=== PATIENT | male | born 1945 | race Hispanic/Latino ===

== ENCOUNTER 2019-08-23 23:58 | Observation (INO) | payer MEDICARE ==
[~2019-08-23] VITALS: Ht 157.5 cm; Wt 52.4 kg
[2019-08-24 00:26] LABS: BASOPHILS % (AUTO) 0.6 % (0.0-5.0); EOSINOPHILS % (AUTO) 1.7 % (0.0-8.0); HEMATOCRIT 27.7 % (42-54); LYMPHOCYTES % (AUTO) 14.8 % (21.0-51.0); MEAN CORPUSCULAR HEMOGLOBIN 26.8 pg (27.0-33.0); MEAN CORPUSCULAR HGB CONC 33.5 g/dL (32.0-36.0); MEAN CORPUSCULAR VOLUME 79.9 fL (79-99); MONOCYTES % (AUTO) 8.4 % (3.0-13.0); NEUTROPHILS % (AUTO) 74.5 % (40.0-77.0); PLATELET COUNT (AUTO) 222 K/uL (130-400); RED BLOOD CELL COUNT(AUTO) 3.47 MIL/uL (4.50-6.20); RED CELL DISTRIBUTION WIDTH 16.8 % (11.0-15.5); WHITE BLOOD COUNT (AUTO) 7.6 K/uL (4.8-10.8)
[2019-08-24 00:39] LABS: ALBUMIN 2.1 g/dL (3.5-5.0); BILIRUBIN,TOTAL 0.8 mg/dL (0.2-1.0); CREATININE 1.1 mg/dL (0.5-1.5); INR 1.13 (0.85-1.15); PARTIAL THROMBOPLASTIN TIME 26.8 SEC (26.3-35.5); PROTHROMBIN TIME 11.8 SEC (9.6-11.6); TOTAL PROTEIN, SERUM 3.8 g/dL (6.0-8.3)
[2019-08-24 00:45] LABS: POTASSIUM 2.1 mmol/L (3.5-5.1)
[2019-08-24] MEDS ORDERED: POTASSIUM CHLORIDE 20 MEQ ERTAB PO ONE (00:49)
[2019-08-24 01:07] LABS: ABG OXYGEN SATURATION 68.8 % (95.0-99.0); BASE EXCESS,VENOUS BLOOD GAS -4.1 (-2.0-3.0); HCO3,VENOUS BLOOD GAS 20.7 (21.0-28.0); PCO2,VENOUS BLOOD GAS 37 (35-48); PH,VENOUS BLOOD GAS 7.364 (7.350-7.450)
[2019-08-24 01:13] LABS: APPEARANCE,URINE Clear (CLEAR); BILIRUBIN,URINE Negative (NEGATIVE); COLOR,URINE Yellow (YELLOW); GLUCOSE, URINE (UA) Negative (NEGATIVE); KETONES,URINE Negative (NEGATIVE); LEUKOCYTE ESTERASE ,URINE Negative (NEGATIVE); NITRATE,URINE Negative (NEGATIVE); OCCULT BLOOD,URINE Negative (NEGATIVE); PH,URINE 5.5 (5.0-8.0); PROTEIN,URINE POS 1+ mg/dL (NEGATIVE)
[2019-08-24] MEDS ORDERED: ACETAMINOPHEN 325 MG TAB PO PRN (01:30)
[2019-08-24] MEDS ORDERED: POTASSIUM CHLORIDE 10MEQ/100ML 100 ML IV PRN (01:30)
[2019-08-24] MEDS ORDERED: LACTULOSE 20 GM/30 ML UDCUP PO PRN (01:30)
[2019-08-24] MEDS ORDERED: ONDANSETRON HCL 4 MG/2 ML VIAL IV PRN (01:30)
[2019-08-24] MEDS ORDERED: LIDOCAINE HCL-MPF 1% 2ML VIAL IV PRN (01:30)
[2019-08-24] MEDS ORDERED: POTASSIUM CHLORIDE 20 MEQ ERTAB PO PRN (01:30)
[2019-08-24] MEDS ORDERED: IPRATROPIUM/ALBUTEROL SULFATE 3 ML SOLUTION IH PRN (01:30)
[2019-08-24] MEDS ORDERED: POTASSIUM CHLORIDE 10% ELIXIR 20 MEQ/15 ML UDCUP PO PRN (01:30)
[2019-08-24] MEDS ORDERED: NITROGLYCERIN 0.4 MG SL TAB SL PRN (01:30)
[2019-08-24 01:33] LABS: AMPHET/METH SCREEN,URINE NEGATIVE (NEGATIVE); BARBITURATE SCREEN, URINE NEGATIVE (NEGATIVE); BENZODIAZEPINES SCREEN,URINE NEGATIVE (NEGATIVE); CANNABINOID SCREEN,URINE NEGATIVE (NEGATIVE); COCAINE SCREEN,URINE POSITIVE (NEGATIVE); OPIATE SCREEN,URINE NEGATIVE (NEGATIVE); PHENCYCLIDINE SCREEN,URINE NEGATIVE (NEGATIVE)
[2019-08-24 01:45] LABS: HEMOGLOBIN A1C 5.3 % (4.0-6.0)
[2019-08-24 01:47] LABS: CHOLESTEROL 101 mg/dL (<200); HDL CHOLESTEROL 89 mg/dL (29-71); LDL DIRECT 61 mg/dL (0-99); TRIGLYCERIDES 63 mg/dL (30-200)
[2019-08-24 02:53] VITALS: BP 152/83
--- NOTE | 2019-08-24 03:00 | NUR ---
ADMISSION PT RECEIVED TO 227. SEE NURSING DATA BASE AND ASSESSMENT FOR MORE INFORMATION. PT ORIENTED TO ROOM, CALLBELL WITHIN REACH.
[2019-08-24] MEDS: ACETAMINOPHEN 325 MG TAB PO PRN ×2 (03:38→04:35)
[2019-08-24 06:20] LABS: TROPONIN I 0.09 ng/mL (0.00-0.06)
[2019-08-24 08:10] VITALS: BP 144/88
--- NOTE | 2019-08-24 08:20 | NUR ---
MD VISIT DR MUHAMMAD IN TO SEE PT. UPDATED PT ON CURRENT STATUS & PLAN OF CARE. PT MENTIONS TO MD WANTING TO GO HOME. MD MENTIONS POSSIBILITY OF DYING IF CHEST PAIN NOT ADDRESSED ACCORDINGLY. PT RESPONDS BY SAYING NOT CARING IF HE GOES HOME AND DIES. PT REMINDED OF CARDIOLOGY CONSULT PENDING, & IF CLEARED BY CARDIOLOGY MAY GO HOME TODAY.
--- NOTE | 2019-08-24 08:45 | NUR ---
AM ASSESSMENT PT LAYING IN BED, SLEEPING. PT NOT WANTING TO BE BOTHERED, BU T ALLOWS ASSESSMENT. A/O X 3. NO SOB. NO DISTRESS NOTED. O2 NC @ 2L. DENIES CHEST PAIN OR DISCOMFORT. DENIES PALPITATIONS. TELE: SR 70s. DENIES N/V AND/OR DIARRHEA. BR W/BRP. PT INFORMED CARDIOLOGY CONSULT PENDING. INSTRUCTED TO CALL FOR ASSISTANCE. CALL LIZ W/IN REACH.
[2019-08-24] MEDS ORDERED: FAMOTIDINE 20MG TAB 20 MG TAB PO SCH (09:00)
[2019-08-24] MEDS ORDERED: ENOXAPARIN SODIUM 30 MG/0.3 ML SQ SCH (09:00)
[2019-08-24] MEDS ORDERED: METOPROLOL TARTRATE 25 MG TAB PO SCH (09:00)
[2019-08-24] MEDS ORDERED: ASPIRIN 325 MG TABLET PO SCH (09:00)
--- NOTE | 2019-08-24 10:25 | NUR ---
STATUS PT WANTING TO GO HOME. PT REMINDED MD HAS NOT GIVEN ORDER TO DISCHARGE HOME & PENDING TO BE SEEN BY CARDIOLOGY. PT INSISTS WANTING TO GO HOME TODAY, RIGHT NOW. LEAVING HOSPITAL AMA EXPLAINED TO PT. RISK OF ALSO MENTIONED @ THIS TIME. PT AGAIN STATES WANTING TO GO HOME & NOT CARING IF HE DIES. TELE KATHRINE REMOVED @ THIS TIME.
--- NOTE | 2019-08-24 10:28 | NUR ---
DISCHARGE AMA FOR BROUGHT IN & EXPLAINED TO PT. RISKS OF LEAVING AMA, INCLUDING , MENTIONED AGAIN. PT SIGNS FORM TO LEAVE HOSPITAL AMA.
--- NOTE | 2019-08-24 10:30 | NUR ---
DISCHARGE DR MUHAMMAD NOTIFIED PT DECIDED TO LEAVE AMA BEFORE BEING SEEN BY CARDIOLOGY.
--- NOTE | 2019-08-24 10:37 | NUR ---
DISCHARGE PT WALKED SELF OUT OF ROOM, LEAVING AMA. PRIOR TO LEAVING, PT PLACED PHONE CALL TO HAVE PERSON BOAT MOTOR MECHANIC FROM HOSPITAL.
[2019-08-24] MEDS ORDERED: ATORVASTATIN CALCIUM 20 MG TABLET PO SCH (21:00)
== END 2019-08-24 10:35 | disposition left against medical advice (07) ==
LOC: EDH 23:58 → EDHIP 08-24 01:19 → 2DH 08-24 02:51
PROVIDERS: ADMIT Internal Medicine; ATTEND Internal Medicine
DX: R07.89 Other chest pain (principal); R06.03 Acute respiratory distress; J84.10 Pulmonary fibrosis, unspecified; I11.9 Hypertensive heart disease without heart failure; I25.10 Atherosclerotic heart disease of native coronary artery without angina pectoris; E78.5 Hyperlipidemia, unspecified; E44.0 Moderate protein-calorie malnutrition; I45.10 Unspecified right bundle-branch block; F14.90 Cocaine use, unspecified, uncomplicated; E87.6 Hypokalemia; K21.9 Gastro-esophageal reflux disease without esophagitis; F17.200 Nicotine dependence, unspecified, uncomplicated; Z79.82 Long term (current) use of aspirin; Z79.899 Other long term (current) drug therapy
CPT/HCPCS: 36415; 36600; 71045; 80053; 80061; 80305; 81003; 82010; 82550 ×2; 82803; 83036; 83605; 83735; 83874; 84484 ×3; 85025; 85610; 85730; 93005 ×3; 94664; 99284; A4600; G0378 ×9; G0480

== ENCOUNTER 2019-08-29 15:07 | Inpatient (IN) | payer MEDICARE ==
[~2019-08-29] VITALS: Ht 157.5 cm; Wt 49.0 kg
[2019-08-29 15:51] LABS: BASOPHILS % (AUTO) 0.1 % (0.0-5.0); HEMATOCRIT 29.4 % (42-54); LYMPHOCYTES % (AUTO) 6.1 % (21.0-51.0); MEAN CORPUSCULAR HEMOGLOBIN 26.7 pg (27.0-33.0); MEAN CORPUSCULAR HGB CONC 33.5 g/dL (32.0-36.0); MEAN CORPUSCULAR VOLUME 79.9 fL (79-99); MONOCYTES % (AUTO) 7.8 % (3.0-13.0); NUCLEATED RED BLOOD CELLS 0.5 % (0.0-0.19); PLATELET COUNT (AUTO) 237 K/uL (130-400); RED BLOOD CELL COUNT(AUTO) 3.68 MIL/uL (4.50-6.20); RED CELL DISTRIBUTION WIDTH 17.3 % (11.0-15.5)
[2019-08-29 16:00] LABS: CARBON DIOXIDE 19 mmol/L (21-32); CHLORIDE 103 mmol/L (101-111); CREATININE 2.4 mg/dL (0.5-1.5); GLOMERULAR FILTR. RATE CALC 28 mL/min (>60); GLUCOSE,RANDOM 102 mg/dL (70-105); POTASSIUM 4.8 mmol/L (3.5-5.1); SODIUM SERUM 136 mmol/L (136-145); UREA NITROGEN, BLOOD 42 mg/dL (7-18)
[2019-08-29 16:07] LABS: INR 1.33 (0.85-1.15); PARTIAL THROMBOPLASTIN TIME 24.9 SEC (26.3-35.5); PROTHROMBIN TIME 13.8 SEC (9.6-11.6)
[2019-08-29] MEDS ORDERED: AZITHROMYCIN 250 MG TABLET PO ONE (16:09)
[2019-08-29] MEDS ORDERED: CEFTRIAXONE SODIUM 1 GM ONE (16:09)
[2019-08-29] MEDS ORDERED: SODIUM CHLORIDE 0.9% 1000ML 1,000 ML IV ONE (16:10)
[2019-08-29 16:12] LABS: B-TYPE NATRIURETIC PEPTIDE 3890 pg/mL (0-100)
[2019-08-29 16:13] LABS: ALANINE AMINOTRANSFERASE 563 U/L (12-78); ALBUMIN 3.4 g/dL (3.5-5.0); BILIRUBIN,DIRECT 0.4 mg/dL (0.0-0.3); BILIRUBIN,TOTAL 2.4 mg/dL (0.2-1.0); LIPASE 285 U/L (114-286); TOTAL PROTEIN, SERUM 6.7 g/dL (6.0-8.3)
[2019-08-29 16:15] LABS: ASPARTATE AMINOTRANSFERASE 837 U/L (10-37)
[2019-08-29 16:16] LABS: ALCOHOL, BLOOD < 3 mg/dL (0-10); CREATINE KINASE, TOTAL 427 U/L (21-232)
[2019-08-29 16:58] LABS: APPEARANCE,URINE Clear (CLEAR); BILIRUBIN,URINE Negative (NEGATIVE); COLOR,URINE Yellow (YELLOW); GLUCOSE, URINE (UA) Negative (NEGATIVE); KETONES,URINE Negative (NEGATIVE); LEUKOCYTE ESTERASE ,URINE Negative (NEGATIVE); NITRATE,URINE Negative (NEGATIVE); OCCULT BLOOD,URINE Small (NEGATIVE); PH,URINE 5.5 (5.0-8.0); PROTEIN,URINE POS 1+ mg/dL (NEGATIVE)
[2019-08-29] MEDS ORDERED: ONDANSETRON HCL 4 MG/2 ML VIAL ONE (17:01)
[2019-08-29 17:06] LABS: AMPHET/METH SCREEN,URINE NEGATIVE (NEGATIVE); BARBITURATE SCREEN, URINE NEGATIVE (NEGATIVE); BENZODIAZEPINES SCREEN,URINE NEGATIVE (NEGATIVE); CANNABINOID SCREEN,URINE NEGATIVE (NEGATIVE); COCAINE SCREEN,URINE POSITIVE (NEGATIVE); OPIATE SCREEN,URINE NEGATIVE (NEGATIVE); PHENCYCLIDINE SCREEN,URINE NEGATIVE (NEGATIVE)
[2019-08-29] MEDS ORDERED: FUROSEMIDE 10 MG/ML 4ML VIAL ONE (17:06)
[2019-08-29 17:11] LABS: BACTERIA,URINE Few /HPF (None Seen); SQUAMOUS EPITHELIAL CELL,UR 0-2 /HPF (0-2)
[2019-08-29 17:12] LABS: MUCUS,URINE Few LPF (None Seen)
[2019-08-29] MEDS ORDERED: NITROGLYCERIN 1GM/1 INCH PACKET TD ONE ×2 (17:34→18:13)
[2019-08-29] MEDS ORDERED: MORPHINE SULFATE 2 MG/ML 1ML SYG ONE ×2 (17:34→18:13)
[2019-08-29] MEDS ORDERED: ASPIRIN 81MG TAB.CHEW ONE (17:34)
[2019-08-29] MEDS ORDERED: NITROGLYCERIN 1GM/1 INCH PACKET TD SCH (18:15)
[2019-08-29] MEDS ORDERED: ONDANSETRON HCL 4 MG/2 ML VIAL IV PRN (18:15)
[2019-08-29] MEDS ORDERED: FUROSEMIDE 10 MG/ML 2ML VIAL IV SCH (18:15)
[2019-08-29] MEDS ORDERED: MORPHINE SULFATE 2 MG/ML 1ML SYG IVP PRN (18:15)
[2019-08-29] MEDS: CEFTRIAXONE SODIUM 1 GM IVP SCH (18:30)
[2019-08-30] MEDS ORDERED: FUROSEMIDE 10 MG/ML 2ML VIAL ONE (05:29)
[2019-08-30] MEDS ORDERED: CEFTRIAXONE SODIUM 1 GM ONE (05:29)
[2019-08-30 05:42] LABS: BASOPHILS % (AUTO) 0.4 % (0.0-5.0); EOSINOPHILS % (AUTO) 1.7 % (0.0-8.0); HEMATOCRIT 32.7 % (42-54); LYMPHOCYTES % (AUTO) 3.9 % (21.0-51.0); MEAN CORPUSCULAR HEMOGLOBIN 26.2 pg (27.0-33.0); MEAN CORPUSCULAR HGB CONC 32.4 g/dL (32.0-36.0); MEAN CORPUSCULAR VOLUME 80.8 fL (79-99); MONOCYTES % (AUTO) 8.7 % (3.0-13.0); NEUTROPHILS % (AUTO) 85.3 % (40.0-77.0); NUCLEATED RED BLOOD CELLS 0.5 % (0.0-0.19); PLATELET COUNT (AUTO) 222 K/uL (130-400); RED BLOOD CELL COUNT(AUTO) 4.05 MIL/uL (4.50-6.20); RED CELL DISTRIBUTION WIDTH 17.1 % (11.0-15.5); WHITE BLOOD COUNT (AUTO) 9.3 K/uL (4.8-10.8)
[2019-08-30 06:11] LABS: ALBUMIN 3.2 g/dL (3.5-5.0); BILIRUBIN,TOTAL 1.4 mg/dL (0.2-1.0); CREATININE 1.9 mg/dL (0.5-1.5); MAGNESIUM 3.1 mg/dL (1.80-2.40); PHOSPHORUS 5.1 mg/dL (2.5-4.9); POTASSIUM 5.6 mmol/L (3.5-5.1); TOTAL PROTEIN, SERUM 6.5 g/dL (6.0-8.3)
[2019-08-30] MEDS: CEFTRIAXONE SODIUM 1 GM IVP SCH ×2 (06:30→20:57)
[2019-08-30] MEDS ORDERED: CALCIUM GLUCONATE 1 GM/10 ML VIAL IV SCH (07:15)
--- NOTE | 2019-08-30 07:26 | NUR ---
DR. MUHAMMAD IS IN TO SEE PATIENT. MD ORDERED TO START PATIENT ON CLEAR LIQUID DIET.
[2019-08-30] MEDS: NITROGLYCERIN 1GM/1 INCH PACKET TD SCH ×3 (07:30→20:58)
[2019-08-30] MEDS ORDERED: DEXTROSE 50%-WATER 50 ML DISP.SYRIN IV SCH (07:30)
[2019-08-30] MEDS ORDERED: CALCIUM GLUCONATE 1 GM in SODIUM CHLORIDE 0.9% 50 ML IV SCH (07:30)
[2019-08-30] MEDS ORDERED: INSULIN HUMULIN R 100 UNIT/ML 3ML ONE (08:00)
--- NOTE | 2019-08-30 08:00 | NUR ---
NOTED RIGHT KNEE SWELLING. PATIENT VOICED THAT THIS IS NOT NEW AND THAT HE'S HAD THIS SWELLING FOR OVER 3 MONTHS. Addendum: 08/30/19 at 1837 by TITA WHITAKER RN RN Amended: Links added.
[2019-08-30] MEDS ORDERED: DEXTROSE 50%-WATER 50 ML DISP.SYRIN IV ONE (08:01)
[2019-08-30] MEDS: INSULIN HUMULIN R 100 UNIT/ML 3ML SQ SCH (08:13)
[2019-08-30] MEDS ORDERED: FAMOTIDINE/PF 20 MG/2 ML VIAL IV ONE (08:23)
[2019-08-30] MEDS ORDERED: ASPIRIN 81MG TAB.CHEW ONE (08:23)
[2019-08-30] MEDS: FAMOTIDINE/PF 20 MG/2 ML VIAL IV SCH (08:24)
[2019-08-30] MEDS ORDERED: SODIUM CHLORIDE 0.9% 250 ML IV ONE (08:24)
[2019-08-30] MEDS: ASPIRIN 81MG TAB.CHEW PO SCH (08:24)
[2019-08-30] MEDS ORDERED: HYDRALAZINE HCL 20 MG/ML VIAL ONE (08:27)
[2019-08-30] MEDS: HYDRALAZINE HCL 20 MG/ML VIAL IV PRN ×2 (08:28→18:39)
[2019-08-30] MEDS: SODIUM CHLORIDE 0.9% 1000ML 1,000 ML IV SCH ×2 (08:30→20:58)
[2019-08-30 08:59] LABS: GAMMA GLUTAMYL TRANSFERASE 188 U/L (5-85)
[2019-08-30 09:00] LABS: CREATINE KINASE, TOTAL 415 U/L (21-232)
[2019-08-30 09:05] VITALS: BP 145/87
--- NOTE | 2019-08-30 10:05 | NUR ---
INFORMED Martha THIBODEAUX NP OF THE NEW CONSULT. SHE SAID THAT SHE WILL SEE PATIENT IN ER.
[2019-08-30 12:00] VITALS: BP 143/92
--- NOTE | 2019-08-30 12:48 | NUR ---
Juan David CHILDERS IS MAKING HER ROUNDS. SHE VERBALIZED THAT PATIENT TOLD HER THAT HE WILL LEAVE AMA IF HE DOES NOT GET FED. PATIENT IS CURRENTLY ON CLEAR LIQUID DIET AWAITING GI CONSULT. US ABDOMEN SHOWED ACUTE CHOLECYSTISIS.
--- NOTE | 2019-08-30 15:26 | NUR ---
PATIENT REFUSED BLOOD DRAW FOR CARDIAC ENZYMES. EXPLAINED TO PATIENT THE NEED TO MONITOR/F.U ON ELEVATED TROPONINS BUT PATIENT STILL REFUSED BLOOD DRAW.
[2019-08-30 15:27] VITALS: BP 159/108
--- NOTE | 2019-08-30 15:48 | NUR ---
GI CONSULT SPOKE WITH DR. Daljit KING ABOUT NEW CONSULT. LABS AND US ABDOMEN RESULTS RELAYED TO MD. PER MD, NO ACUTE INTERVENTION NEEDED AT THIS TIME. PATIENT TO F/U WITH HIM IN WEEK OUTPATIENT.
--- NOTE | 2019-08-30 18:08 | NUR ---
cm note met with patient and states resides at home with friend Liza Eduardo,cell [phone]. who is also his provider approx 2hrs daily, states uses cane at times, no other dme. dc plan is back to home at [facility] no dc needs. Addendum: 08/30/19 at 1812 by SHERI POWERS CM Amended: Links added.
[2019-08-30] MEDS ORDERED: PANT40TA25 PO (18:46)
[2019-08-30] MEDS ORDERED: LISI10TA7 PO (18:46)
[2019-08-30] MEDS ORDERED: SUCR1TAB2 PO (18:46)
[2019-08-30 19:28] VITALS: BP 142/77
[2019-08-30] MEDS: SODIUM BICARBONATE 650 MG TAB PO SCH (20:58)
[2019-08-31] VITALS (11 sets, daily range): BP systolic 144–164; BP diastolic 86–104
[2019-08-31] MEDS: HYDRALAZINE HCL 20 MG/ML VIAL IV PRN (03:28)
[2019-08-31 04:23] LABS: MEAN CORPUSCULAR HEMOGLOBIN 27.2 pg (27.0-33.0); MEAN CORPUSCULAR HGB CONC 33.7 g/dL (32.0-36.0); MEAN CORPUSCULAR VOLUME 80.6 fL (79-99); NUCLEATED RED BLOOD CELLS 0.3 % (0.0-0.19); PLATELET COUNT (AUTO) 227 K/uL (130-400); RED BLOOD CELL COUNT(AUTO) 3.72 MIL/uL (4.50-6.20); RED CELL DISTRIBUTION WIDTH 17.8 % (11.0-15.5); WHITE BLOOD COUNT (AUTO) 9.4 K/uL (4.8-10.8)
[2019-08-31 04:38] LABS: CREATININE 1.5 mg/dL (0.5-1.5); MAGNESIUM 2.5 mg/dL (1.80-2.40); PHOSPHORUS 3.7 mg/dL (2.5-4.9)
[2019-08-31 05:08] LABS: BAND NEUTROPHILS % (MANUAL) 1 % (0-2); LYMPHOCYTES % (MANUAL) 3 % (22-44); MAN.DIFF COMMENT-IMPRESSION MANUAL DIFFERENTIAL; MONOCYTES % (MANUAL) 1 % (2-9); SEGMENTED NEUTROPHILS % 95 % (40-70)
[2019-08-31] MEDS: INSULIN HUMULIN R 100 UNIT/ML 3ML SQ SCH (05:32)
[2019-08-31] MEDS: NITROGLYCERIN 1GM/1 INCH PACKET TD SCH (06:08)
[2019-08-31] MEDS ORDERED: METOPROLOL TARTRATE 1 MG/ML 5ML VIAL IV SCH (06:45)
--- NOTE | 2019-08-31 08:45 | NUR ---
AM NOTE Back from HIDA scan. Awake, alert, and oriented x3. Denies any abdominal pain. Plan of care discussed, verbalized understanding.
[2019-08-31] MEDS: CEFTRIAXONE SODIUM 1 GM IVP SCH ×2 (08:49→20:47)
[2019-08-31] MEDS: SODIUM BICARBONATE 650 MG TAB PO SCH ×2 (08:50→20:47)
[2019-08-31] MEDS: FAMOTIDINE/PF 20 MG/2 ML VIAL IV SCH (08:50)
[2019-08-31] MEDS: ASPIRIN 81MG TAB.CHEW PO SCH (08:50)
--- NOTE | 2019-08-31 11:00 | NUR ---
MD VISIT Dr. Loomis in to see pt, plan of are discussed, verbalized understanding.
[2019-08-31] MEDS: HEPARIN SODIUM 5000UNIT/ML 1ML VIAL SQ SCH ×2 (12:02→22:33)
--- NOTE | 2019-08-31 13:00 | NUR ---
MD VISIT Dr. Das in to see pt, new orders received and will carry out.
[2019-08-31] MEDS: SUCRALFATE 1 GM TABLET PO SCH ×2 (16:08→20:47)
[2019-08-31] MEDS: DOXYCYCLINE HYCLATE 100 MG TABLET PO SCH (20:47)
[2019-08-31] MEDS: METOPROLOL TARTRATE 25 MG TAB PO SCH (20:47)
[2019-09-01 00:14] VITALS: BP 145/97
[2019-09-01 03:40] VITALS: BP 151/89
[2019-09-01 03:50] LABS: LYMPHOCYTES % (AUTO) 7.3 % (21.0-51.0); MEAN CORPUSCULAR HEMOGLOBIN 26.6 pg (27.0-33.0); MEAN CORPUSCULAR HGB CONC 33.3 g/dL (32.0-36.0); MEAN CORPUSCULAR VOLUME 79.9 fL (79-99); MONOCYTES % (AUTO) 6.9 % (3.0-13.0); NEUTROPHILS % (AUTO) 85.8 % (40.0-77.0); NUCLEATED RED BLOOD CELLS 0.3 % (0.0-0.19); PLATELET COUNT (AUTO) 199 K/uL (130-400); RED BLOOD CELL COUNT(AUTO) 3.63 MIL/uL (4.50-6.20); RED CELL DISTRIBUTION WIDTH 17.4 % (11.0-15.5); WHITE BLOOD COUNT (AUTO) 8.5 K/uL (4.8-10.8)
[2019-09-01 03:53] LABS: ABG BASE EXCESS -2.8 mmol/L (-2.0-3.0); ABG HCO3 19.8 mmol/L (21.0-28.0); ABG OXYGEN SATURATION 96.2 % (95.0-99.0); ABG PCO2 29 mmHg (35-48)
[2019-09-01 04:01] LABS: INR 1.22 (0.85-1.15); PROTHROMBIN TIME 12.7 SEC (9.6-11.6)
[2019-09-01 04:03] LABS: ALBUMIN 2.8 g/dL (3.5-5.0); BILIRUBIN,TOTAL 0.9 mg/dL (0.2-1.0); CREATININE 1.2 mg/dL (0.5-1.5); MAGNESIUM 2.1 mg/dL (1.80-2.40); PHOSPHORUS 2.9 mg/dL (2.5-4.9); POTASSIUM 4.1 mmol/L (3.5-5.1); TOTAL PROTEIN, SERUM 5.6 g/dL (6.0-8.3)
[2019-09-01 05:02] LABS: ERYTHROCYTE SEDIMENTATION RATE 7 MM/HR (0-20)
[2019-09-01] MEDS: INSULIN HUMULIN R 100 UNIT/ML 3ML SQ SCH (05:49)
[2019-09-01 06:10] LABS: HEPATITIS A ANTIBODY IGM Negative (Negative); HEPATITIS B CORE IGM Negative (Negative); HEPATITIS Bs ANTIGEN SCREEN P Negative (Negative)
[2019-09-01] MEDS: SUCRALFATE 1 GM TABLET PO SCH (06:33)
[2019-09-01 07:00] VITALS: BP 165/100
[2019-09-01] MEDS ORDERED: PANTOPRAZOLE SODIUM 40 MG TABLET.DR PO SCH (07:30)
[2019-09-01] MEDS: ASPIRIN 81MG TAB.CHEW PO SCH (08:17)
[2019-09-01] MEDS: SODIUM BICARBONATE 650 MG TAB PO SCH (08:17)
[2019-09-01] MEDS: METOPROLOL TARTRATE 25 MG TAB PO SCH (08:17)
[2019-09-01] MEDS: DOXYCYCLINE HYCLATE 100 MG TABLET PO SCH (08:18)
--- NOTE | 2019-09-01 08:21 | NUR ---
IV Pt removed IV. States he is going home. Informed pt that need to give abx iv and he refused. made aware
--- NOTE | 2019-09-01 08:39 | NUR ---
MD Dr. Danielson in to see pt. Discussed condition Aortic stenosis and low EF with pt and need for Aortic stenosis surgery. Pt refused. Discussed DNR. Pt states he wants to go home.
[2019-09-01] MEDS ORDERED: FAMOTIDINE 20MG TAB 20 MG TAB PO SCH (09:00)
--- NOTE | 2019-09-01 10:47 | NUR ---
AMJuarez Pt signed AMA form made aware
[2019-09-07 15:14] LABS: ROCKY MT SPOTTED FEVER IGG <1:64 (Neg:<1:64); TYPHUS FEVER AB IGG <1:64 (Neg:<1:64)
== END 2019-09-01 10:48 | disposition left against medical advice (07) | DRG 871 ==
LOC: EDH 15:07 → EDHIP 18:08 → 2BH 08-30 14:56
PROVIDERS: ADMIT Family Medicine; ATTEND Family Medicine
DX: A41.9 Sepsis, unspecified organism (principal); E43 Unspecified severe protein-calorie malnutrition; G93.41 Metabolic encephalopathy; M62.82 Rhabdomyolysis; E87.2 Acidosis; N17.9 Acute kidney failure, unspecified; K81.0 Acute cholecystitis; F14.20 Cocaine dependence, uncomplicated; I13.0 Hypertensive heart and chronic kidney disease with heart failure and stage 1 through stage 4 chronic kidney disease, or unspecified chronic kidney disease; Z68.1 Body mass index [BMI] 19.9 or less, adult; K70.11 Alcoholic hepatitis with ascites; E87.5 Hyperkalemia; D64.9 Anemia, unspecified; F10.10 Alcohol abuse, uncomplicated; F17.200 Nicotine dependence, unspecified, uncomplicated; I50.9 Heart failure, unspecified; I35.0 Nonrheumatic aortic (valve) stenosis; I45.10 Unspecified right bundle-branch block; J84.10 Pulmonary fibrosis, unspecified; K21.9 Gastro-esophageal reflux disease without esophagitis; K70.40 Alcoholic hepatic failure without coma; M19.90 Unspecified osteoarthritis, unspecified site; N18.9 Chronic kidney disease, unspecified; Z91.19 Patient's noncompliance with other medical treatment and regimen; Z83.3 Family history of diabetes mellitus; Z82.49 Family history of ischemic heart disease and other diseases of the circulatory system
CPT/HCPCS: 36415; 36600; 70450; 71045; 76705; 78226; 80048; 80053; 80074; 80076; 80305; 81001; 82140; 82150; 82550; 82803; 82977; 83605; 83690; 83735; 83880; 83935; 84100; 84145; 84484; 85025; 85610; 85651; 85730; 86757; 87040; 93005; 93306; A9537; G0378; G0480; J0360; J0610; J0696; J1644; J1815; J1940; J2405; J3490; J7030; J7070

== ENCOUNTER 2019-09-04 12:21 | Emergency (ER) | payer MEDICARE ==
[~2019-09-04 12:21] MED LIST: PANT40TA25 PO; SUCR1TAB2 PO
[2019-09-04 12:50] LABS: BASOPHILS % (AUTO) 0.3 % (0.0-5.0); LYMPHOCYTES % (AUTO) 5.8 % (21.0-51.0); MEAN CORPUSCULAR HEMOGLOBIN 26.2 pg (27.0-33.0); MEAN CORPUSCULAR HGB CONC 32.8 g/dL (32.0-36.0); MEAN CORPUSCULAR VOLUME 79.9 fL (79-99); MONOCYTES % (AUTO) 8.1 % (3.0-13.0); NEUTROPHILS % (AUTO) 85.8 % (40.0-77.0); NUCLEATED RED BLOOD CELLS 0.2 % (0.0-0.19); PLATELET COUNT (AUTO) 197 K/uL (130-400); RED CELL DISTRIBUTION WIDTH 17.9 % (11.0-15.5); WHITE BLOOD COUNT (AUTO) 10.2 K/uL (4.8-10.8)
[2019-09-04 12:51] LABS: CREATININE 1.4 mg/dL (0.5-1.5); POTASSIUM 3.7 mmol/L (3.5-5.1)
[2019-09-04 13:03] LABS: INR 1.12 (0.85-1.15); PARTIAL THROMBOPLASTIN TIME 26.2 SEC (26.3-35.5); PROTHROMBIN TIME 11.7 SEC (9.6-11.6)
[2019-09-04 13:27] LABS: APPEARANCE,URINE Clear (CLEAR); BILIRUBIN,URINE Negative (NEGATIVE); COLOR,URINE Yellow (YELLOW); GLUCOSE, URINE (UA) Negative (NEGATIVE); KETONES,URINE Negative (NEGATIVE); LEUKOCYTE ESTERASE ,URINE Negative (NEGATIVE); NITRATE,URINE Negative (NEGATIVE); OCCULT BLOOD,URINE Negative (NEGATIVE); PROTEIN,URINE Trace mg/dL (NEGATIVE)
[2019-09-04 13:34] LABS: AMPHET/METH SCREEN,URINE NEGATIVE (NEGATIVE); BARBITURATE SCREEN, URINE NEGATIVE (NEGATIVE); BENZODIAZEPINES SCREEN,URINE NEGATIVE (NEGATIVE); CANNABINOID SCREEN,URINE NEGATIVE (NEGATIVE); COCAINE SCREEN,URINE POSITIVE (NEGATIVE); OPIATE SCREEN,URINE NEGATIVE (NEGATIVE); PHENCYCLIDINE SCREEN,URINE NEGATIVE (NEGATIVE)
[2019-09-04 13:36] LABS: B-TYPE NATRIURETIC PEPTIDE 3950 pg/mL (0-100)
[2019-09-04 13:38] LABS: BACTERIA,URINE Rare /HPF (None Seen); RBC,URINE 0-1 /HPF (0-1); SQUAMOUS EPITHELIAL CELL,UR None Seen /HPF (0-2); WBC,URINE 0-1 /HPF (0-1)
== END 2019-09-05 03:39 | disposition home or self-care (01) ==
LOC: EDH 12:21
DX: I13.0 Hypertensive heart and chronic kidney disease with heart failure and stage 1 through stage 4 chronic kidney disease, or unspecified chronic kidney disease (principal); N18.9 Chronic kidney disease, unspecified; I50.42 Chronic combined systolic (congestive) and diastolic (congestive) heart failure; R94.5 Abnormal results of liver function studies; K21.9 Gastro-esophageal reflux disease without esophagitis
CPT/HCPCS: 36415; 71045; 80048; 80305; 81001; 82550; 83690; 83880; 84484 ×2; 85025; 85610; 85730; 93005 ×2; 99285; G0480

== ENCOUNTER 2019-12-13 09:38 | Inpatient (IN) | payer MEDICARE ==
[~2019-12-13] VITALS: Ht 162.6 cm; Wt 44.5 kg
[2019-12-13] MEDS ORDERED: ASPIRIN 325 MG TABLET ONE (10:09)
[2019-12-13 10:14] LABS: BASOPHILS % (AUTO) 0.2 % (0.0-5.0); EOSINOPHILS % (AUTO) 0.5 % (0.0-8.0); HEMATOCRIT 28.4 % (42-54); LYMPHOCYTES % (AUTO) 23.8 % (21.0-51.0); MEAN CORPUSCULAR HEMOGLOBIN 24.9 pg (27.0-33.0); MEAN CORPUSCULAR HGB CONC 33.1 g/dL (32.0-36.0); MEAN CORPUSCULAR VOLUME 75.1 fL (79-99); MONOCYTES % (AUTO) 6.5 % (3.0-13.0); NEUTROPHILS % (AUTO) 68.5 % (40.0-77.0); NUCLEATED RED BLOOD CELLS 0.4 % (0.0-0.19); PLATELET COUNT (AUTO) 238 K/uL (130-400); RED BLOOD CELL COUNT(AUTO) 3.78 MIL/uL (4.50-6.20); RED CELL DISTRIBUTION WIDTH 18.5 % (11.0-15.5); WHITE BLOOD COUNT (AUTO) 8.3 K/uL (4.8-10.8)
[2019-12-13] MEDS ORDERED: METHYLPREDNISOLONE SOD SUCC 125MG/2ML VIAL ONE ×2 (10:18→10:19)
[2019-12-13] MEDS ORDERED: IPRATROPIUM/ALBUTEROL SULFATE 3 ML SOLUTION IH ONE (10:24)
[2019-12-13 10:39] LABS: INR 1.17 (0.85-1.15); PROTHROMBIN TIME 12.2 SEC (9.6-11.6)
[2019-12-13 10:52] LABS: CREATININE 1.2 mg/dL (0.5-1.5)
[2019-12-13 10:56] LABS: ALBUMIN 3.4 g/dL (3.5-5.0); BILIRUBIN,TOTAL 1.6 mg/dL (0.2-1.0); TOTAL PROTEIN, SERUM 7.4 g/dL (6.0-8.3)
[2019-12-13] MEDS ORDERED: LEVOFLOXACIN 500 MG/D5W 100 ML 100 ML ONE (11:29)
[2019-12-13 12:08] LABS: B-TYPE NATRIURETIC PEPTIDE 4610 pg/mL (0-100)
[2019-12-13] MEDS ORDERED: FUROSEMIDE 10 MG/ML 4ML VIAL ONE (12:20)
[2019-12-13 13:44] LABS: ABG BASE EXCESS -4.4 mmol/L (-2.0-3.0); ABG HCO3 17.4 mmol/L (21.0-28.0); ABG OXYGEN SATURATION 96.3 % (95.0-99.0); ABG PCO2 25 mmHg (35-48)
[2019-12-13] MEDS ORDERED: HYDRALAZINE HCL 20 MG/ML VIAL IV PRN (13:45)
[2019-12-13] MEDS ORDERED: ACETAMINOPHEN 325 MG TAB PO PRN (13:45)
[2019-12-13] MEDS ORDERED: LACTULOSE 20 GM/30 ML UDCUP PO PRN (13:45)
[2019-12-13] MEDS: CEFTRIAXONE SODIUM 2 GM VIAL IVP SCH (14:00)
[2019-12-13] MEDS: DOXYCYCLINE 100MG+NS 250ML 250 ML IV SCH (14:00)
[2019-12-13] MEDS: PANTOPRAZOLE 40 MG/VIAL IVP SCH ×2 (14:30→21:46)
[2019-12-13] MEDS ORDERED: HYDRALAZINE HCL 20 MG/ML VIAL ONE (14:41)
[2019-12-13] MEDS ORDERED: CEFTRIAXONE SODIUM 2 GM VIAL ONE (14:43)
[2019-12-13] MEDS ORDERED: SODIUM CHLORIDE 0.9% 100 ML IV ONE (14:43)
[2019-12-13 15:08] LABS: TROPONIN I 0.13 ng/mL (0.00-0.06)
--- NOTE | 2019-12-13 15:40 | NUR ---
ARRIVAL TO FLOOR PT IS AAOX3 DENIES CP DENIES SOB DENIES. AMBULATED FROM ER BED TO FLOOR BED. ARRIVED WITH ORDERS. DR PINEDO AT BEDSIDE, SAW PATIENT, OK FOR PATIENT TO EAT DINNER. TELE PACK ON PATIENT HR VIA TELE SR 70S.
[2019-12-13 15:45] VITALS: BP 155/58
[2019-12-13] MEDS ORDERED: LISINOPRIL 10 MG TABLET PO SCH (16:00)
[2019-12-13] MEDS ORDERED: METOPROLOL SUCCINATE 50 MG TAB.SR.24H PO SCH (16:00)
[2019-12-13] MEDS ORDERED: SPIRONOLACTONE 25 MG TAB PO SCH (16:00)
[2019-12-13 16:06] LABS: % IRON SATURATION 8.9 % (30-44)
[2019-12-13] MEDS: IPRATROPIUM/ALBUTEROL SULFATE 3 ML SOLUTION IH SCH ×2 (17:15→23:36)
[2019-12-13 19:41] VITALS: BP 126/75
--- NOTE | 2019-12-13 20:00 | NUR ---
patient complain of stomach hurting, vomited 50 cc emesis. typesetting machine tender paged. 2014-typesetting machine tender repaged [phone] typesetting machine tender returned call, order received and placed in computer. patient medicated as per order. [phone] typesetting machine tender paged, patient complaining of stomach hurting again, no nausea or vomiting at present. [phone]- typesetting machine tender returned call, order received and placed in computer. patient medicated as per orders. patient refusing to let lab draw ordered blood work times 2 and also refused respiratory treatment. patient pulling off monitor, monitor placed back on patient several times.
[2019-12-13] MEDS ORDERED: ONDANSETRON HCL 4 MG/2 ML VIAL ONE (20:34)
[2019-12-13] MEDS ORDERED: ONDANSETRON HCL 4 MG/2 ML VIAL IVP PRN (20:45)
[2019-12-13] MEDS: FUROSEMIDE 10 MG/ML 4ML VIAL IV SCH (21:46)
[2019-12-13] MEDS: PREDNISONE 20 MG TABLET PO SCH (21:47)
[2019-12-13] MEDS ORDERED: SIMETHICONE 80 MG TAB.CHEW ONE (21:54)
[2019-12-13 23:30] VITALS: BP 128/75
[2019-12-14] MEDS ORDERED: DOXYCYCLINE 100MG+NS 250ML 250 ML IV ONE (01:42)
[2019-12-14] MEDS: DOXYCYCLINE 100MG+NS 250ML 250 ML IV SCH ×2 (01:48→13:18)
[2019-12-14 04:05] VITALS: BP 131/85
[2019-12-14] MEDS: IPRATROPIUM/ALBUTEROL SULFATE 3 ML SOLUTION IH SCH ×4 (05:11→23:31)
[2019-12-14 05:49] LABS: TROPONIN I 0.11 ng/mL (0.00-0.06)
[2019-12-14] MEDS: PREDNISONE 20 MG TABLET PO SCH ×2 (07:40→20:24)
[2019-12-14] MEDS: METOPROLOL SUCCINATE 50 MG TAB.SR.24H PO SCH (07:40)
[2019-12-14] MEDS: LISINOPRIL 10 MG TABLET PO SCH (07:41)
[2019-12-14] MEDS: ASPIRIN 81MG TAB.CHEW PO SCH (07:41)
[2019-12-14] MEDS: SPIRONOLACTONE 25 MG TAB PO SCH (07:41)
[2019-12-14 08:00] VITALS: BP 139/84
[2019-12-14] MEDS ORDERED: SIMETHICONE 80 MG TAB.CHEW PO ONE (09:00)
[2019-12-14] MEDS: FUROSEMIDE 10 MG/ML 4ML VIAL IV SCH ×4 (09:33→23:57)
[2019-12-14] MEDS: PANTOPRAZOLE 40 MG/VIAL IVP SCH ×2 (09:33→20:24)
[2019-12-14 11:10] LABS: AMPHET/METH SCREEN,URINE NEGATIVE (NEGATIVE); BARBITURATE SCREEN, URINE NEGATIVE (NEGATIVE); BENZODIAZEPINES SCREEN,URINE NEGATIVE (NEGATIVE); CANNABINOID SCREEN,URINE NEGATIVE (NEGATIVE); COCAINE SCREEN,URINE NEGATIVE (NEGATIVE); OPIATE SCREEN,URINE NEGATIVE (NEGATIVE); PHENCYCLIDINE SCREEN,URINE NEGATIVE (NEGATIVE)
[2019-12-14 11:45] VITALS: BP 123/77
[2019-12-14] MEDS: CEFTRIAXONE SODIUM 2 GM VIAL IVP SCH (13:18)
[2019-12-14 15:52] VITALS: BP 101/61
--- NOTE | 2019-12-14 16:25 | NUR ---
Initial Assessment Patient lives alone. Emergency contact is Manohar Hodges, friend, . No home health. [facility] 15 hours a week. DME: BPM. Patient states he has DME pending delivery from [facility]. He attends [facility]. Independent. Recently moved. New address: [address] [place] [address]. Demographic sheet sent for corrections. DCP is home. Addendum: 12/14/19 at 1629 by ROB SANCHES SS Amended: Links added.
[2019-12-14 19:44] VITALS: BP 127/76
[2019-12-14] MEDS ORDERED: SODIUM CHLORIDE 3% FOR INHALATION 4 ML/AMP VIAL.NEB IH ONE (23:38)
[2019-12-14 23:56] VITALS: BP 122/76
[2019-12-15] MEDS: DOXYCYCLINE 100MG+NS 250ML 250 ML IV SCH (02:05)
[2019-12-15 04:18] VITALS: BP 126/71
[2019-12-15 04:20] LABS: BASOPHILS % (AUTO) 0.1 % (0.0-5.0); HEMATOCRIT 25.4 % (42-54); LYMPHOCYTES % (AUTO) 3.7 % (21.0-51.0); MEAN CORPUSCULAR HEMOGLOBIN 24.3 pg (27.0-33.0); MEAN CORPUSCULAR HGB CONC 33.1 g/dL (32.0-36.0); MEAN CORPUSCULAR VOLUME 73.6 fL (79-99); MONOCYTES % (AUTO) 2.2 % (3.0-13.0); NEUTROPHILS % (AUTO) 93.2 % (40.0-77.0); NUCLEATED RED BLOOD CELLS 0.1 % (0.0-0.19); PLATELET COUNT (AUTO) 215 K/uL (130-400); RED BLOOD CELL COUNT(AUTO) 3.45 MIL/uL (4.50-6.20); RED CELL DISTRIBUTION WIDTH 17.7 % (11.0-15.5); WHITE BLOOD COUNT (AUTO) 14.2 K/uL (4.8-10.8)
[2019-12-15 04:45] LABS: B-TYPE NATRIURETIC PEPTIDE 2180 pg/mL (0-100)
[2019-12-15 05:05] LABS: ALBUMIN 2.8 g/dL (3.5-5.0); CREATININE 1.7 mg/dL (0.5-1.5); MAGNESIUM 2.2 mg/dL (1.80-2.40); PHOSPHORUS 4.4 mg/dL (2.5-4.9); POTASSIUM 3.6 mmol/L (3.5-5.1)
[2019-12-15] MEDS: IPRATROPIUM/ALBUTEROL SULFATE 3 ML SOLUTION IH SCH ×2 (06:25→10:54)
[2019-12-15] MEDS: ASPIRIN 81MG TAB.CHEW PO SCH (07:41)
[2019-12-15] MEDS: SPIRONOLACTONE 25 MG TAB PO SCH (07:41)
[2019-12-15] MEDS: LISINOPRIL 10 MG TABLET PO SCH (07:41)
[2019-12-15] MEDS: PREDNISONE 20 MG TABLET PO SCH (07:41)
[2019-12-15 07:42] VITALS: BP 130/78
[2019-12-15] MEDS: METOPROLOL SUCCINATE 50 MG TAB.SR.24H PO SCH (07:42)
[2019-12-15] MEDS: FUROSEMIDE 10 MG/ML 4ML VIAL IV SCH (07:42)
[2019-12-15] MEDS ORDERED: ASPI-1005 PO (08:21)
[2019-12-15] MEDS ORDERED: LISI10TA7 PO (08:21)
[2019-12-15] MEDS ORDERED: SPIR25TA PO (08:21)
[2019-12-15] MEDS ORDERED: METO50TA9 PO (08:21)
[2019-12-15] MEDS ORDERED: FURO20TA6 PO (08:21)
[2019-12-15] MEDS: PANTOPRAZOLE 40 MG/VIAL IVP SCH (09:00)
[2019-12-15] MEDS ORDERED: PANTOPRAZOLE SODIUM 40 MG TABLET.DR PO SCH (09:08)
[2019-12-15] MEDS ORDERED: POTASSIUM CHLORIDE 10% ELIXIR 20 MEQ/15 ML UDCUP PO PRN (09:15)
[2019-12-15] MEDS: POTASSIUM CHLORIDE 20 MEQ ERTAB PO PRN ×2 (10:18→12:07)
[2019-12-15 11:54] VITALS: BP 132/82
--- NOTE | 2019-12-15 11:58 | NUR ---
RD NOTIFICATION BMI IS 16.9 CLASSIFIED SEVERE UNDERWEIGHT. PT WITH NUTRITION RELATED PHYSICAL SIGNS OF MUSCLE AND FAT LOSS INDICATING PROTEIN/ CALORIE MALNUTRITION. LABS REVIEWED. MEDS REVIEWED. DIET: HEART HEALTHY. PO INTAKE 50-75% AND HAS GOOD APPETITE. ACCORDING TO PT- PLANNING D/C TODAY AFTER LUNCH. PT HAS DIFFICULTY CHEWING FOOD DUE TO MISSING TEETH. SKIN IS INTACT. RD RECOMMENDS ADD MECHANICAL SOFT/ CHOPPED ADD 2GM NA AND 1000ML/D NUTRITION EDUCATION COMPLETED Addendum: 12/15/19 at [address] Amended: Links added.
--- NOTE | 2019-12-15 12:02 | NUR ---
NUTRITION EDUCATION COMPLETED MALNUTRITION, LOW SODIUM AND FLUID INTAKE- EDUCATION MATERIALS PROVIDED IN [facility]. Addendum: 12/15/19 at [address] Amended: Links added.
[2019-12-15] MEDS ORDERED: DOXY100C2 PO (12:07)
--- NOTE | 2019-12-15 12:10 | NUR ---
HL REMOVED, CATHETER INTACT. DISCHARGE INSTRUCTIONS GIVEN, VERBALIZED UNDERSTANDING.
--- NOTE | 2019-12-15 12:21 | NUR ---
DISCHARGED HOME VIA W/C WITH BELONGINGS ACCOMPANIED BY [employer]ICE [employer].
== END 2019-12-15 12:22 | disposition home or self-care (01) | DRG 291 ==
LOC: EDH 09:38 → EDHIP 13:15 → 2AH 15:01
PROVIDERS: ADMIT Internal Medicine; ATTEND Internal Medicine
PROC: 5A09357 Assistance with Respiratory Ventilation, Less than 24 Consecutive Hours, Continuous Positive Airway Pressure (ICD-10-PCS; principal; 2019-12-13)
DX: I11.0 Hypertensive heart disease with heart failure (principal); J96.01 Acute respiratory failure with hypoxia; J18.9 Pneumonia, unspecified organism; R64 Cachexia; Z68.1 Body mass index [BMI] 19.9 or less, adult; I50.43 Acute on chronic combined systolic (congestive) and diastolic (congestive) heart failure; E78.5 Hyperlipidemia, unspecified; F10.10 Alcohol abuse, uncomplicated; F14.90 Cocaine use, unspecified, uncomplicated; I07.1 Rheumatic tricuspid insufficiency; K21.9 Gastro-esophageal reflux disease without esophagitis; M19.90 Unspecified osteoarthritis, unspecified site; Z66 Do not resuscitate; I27.20 Pulmonary hypertension, unspecified; Z79.899 Other long term (current) drug therapy; Z87.11 Personal history of peptic ulcer disease; Z91.19 Patient's noncompliance with other medical treatment and regimen; Z99.81 Dependence on supplemental oxygen; Z83.3 Family history of diabetes mellitus; Z82.49 Family history of ischemic heart disease and other diseases of the circulatory system
CPT/HCPCS: 36415; 36600; 71045; 71250; 80048; 80053; 80305; 82040; 82550; 82803; 83540; 83550; 83735; 83874; 83880; 84100; 84145; 84484; 85025; 85610; 85730; 86738; 87040; 87071; 87205; 87449; 87486; 87581; 87633; 87798; 87804; 93005; 94640; 94660; 94664; 94667; 94668; 99291; C9113; G0378; J0360; J0696; J1940; J1956; J2405; J2930; J3490